=== PATIENT | male | born 1965 | race Caucasian/White ===

== ENCOUNTER 2018-11-10 19:49 | Emergency (ER) | payer BC ==
[2018-11-10] MEDS: Lidocaine 2% 5 ML SDV INJECT ONE (20:00)
[2018-11-10] MEDS: Bacitracin Oint 1 GM U/D Packet TOP ONE (20:04)
[2018-11-10] MEDS: Diphtheria,Pertussis(Acell),Tetanus Vaccine 0.5 ML SDV inactive IM ONE (20:13)
--- NOTE | 2018-11-10 20:15 | EDM.PDOC ---
ED HPI GENERAL MEDICAL PROBLEM - General Chief Complaint: Upper Extremity Injury/Pain Stated Complaint: FISH HOOK Time Seen by Provider: 11/10/18 19:55 Source of Information: Reports: Patient History Limitations: Reports: No Limitations - History of Present Illness INITIAL COMMENTS - FREE TEXT/NARRATIVE: According to patient he was fishing and the fish hook accidentally got stuck into his right middle finger. C/o pain in his finger. No tingling or numbness. 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 No other complaints. Onset: Today Onset Date: 11/10/18 Onset Time: 18:00 Location: Reports: Upper Extremity, Right Quality: Reports: Ache Severity: Mild Improves with: Reports: None Worsens with: Reports: None Associated Symptoms: Denies: Confusion, Chest Pain, Cough, Diaphoresis, Fever/ Chills, Headaches, Nausea/Vomiting, Rash, Seizure, Shortness of Breath, Syncope , Weakness - Related Data Allergies Allergy/AdvReac Type Severity Reaction Status Date / Time tramadol Allergy Nausea and Verified 11/10/18 20:06 Vomiting Review of Systems - Review of Systems Review Of Systems: See Below Constitutional: Denies: Chills, Fever Eyes: Denies: Blurred Vision Ears: Denies: Pain Nose: Denies: Congestion, Epistaxis Mouth/Throat: Denies: Pain, Painful Swallowing Respiratory: Denies: Cough, Sputum Cardiovascular: Denies: Chest Pain, Syncope GI/Abdominal: Denies: Abdominal Pain, Diarrhea, Nausea, Vomiting Genitourinary: Denies: Dysuria Musculoskeletal: Denies: Joint Pain, Joint Swelling, Muscle Pain Skin: Reports: Wound. Denies: Bruising, Pruritis, Rash ED EXAM, GENERAL - Physical Exam Exam: See Below Exam Limited By: No Limitations General Appearance: Alert, WD/WN, No Apparent Distress Eye Exam: Bilateral Eye: EOMI, PERRL Ears: Normal External Exam, Normal Canal, Hearing Grossly Normal, Normal TMs Ear Exam: Bilateral Ear: Auricle Normal, Canal Normal, TM normal Nose: Normal Inspection, Normal Mucosa, No Blood Throat/Mouth: Normal Inspection, Normal Lips, Normal Teeth, Normal Gums, Normal Oropharynx, Normal Voice, No Airway Compromise Head: Atraumatic, Normocephalic Neck: Normal Inspection, Supple, Non-Tender, Full Range of Motion Respiratory/Chest: No Respiratory Distress, Lungs Clear, Normal Breath Sounds, No Accessory Muscle Use, Chest Non-Tender Cardiovascular: Normal Peripheral Pulses, Regular Rate, Rhythm, No Edema, No Gallop, No JVD, No Murmur, No Rub Extremities: Normal Inspection, Normal Range of Motion, Non-Tender, Normal Capillary Refill, No Pedal Edema Neurological: Alert, Oriented Skin Exam: Warm, Other (There is a large fish hook , embedded over the radail aspect of the proximal phalynx of the middle finger. tender with movement.) Course - Vital Signs Text/Narrative:: Pt reassured, there is fish hook embedded in the right middle finger. The area around the wound was infiltrated with about 0.5 cc of 2% lidocaine. The hook was extracted under aseptic precautions with the needle technique. Pt tolerated the procedure well. Bleeding controlled with pressure. Simpel antibiotic ointment and bandaid applied. Pt advised to keep the area clean and dry. He did receive his Tetanus today. return to emergency room or clinic if there is redness, swelling or discharge from the wound. Other hutton followup with his primary care provider as needed. - Orders/Labs/Meds Orders: Active Orders 24 hr Category Date Time Status Vaccines to be Administered [RC] PER UNIT ROUTINE Care 11/10/18 20:07 Active Meds: Medications Discontinued Medications Generic Name Dose Route Start Last Admin Trade Name Lisa PRN Reason Stop Dose Admin Bacitracin 1 dose 11/10/18 20:00 Bacitracin Oint 1 Gm TOP 11/10/18 20:01 ONETIME ONE Diphtheria/Tetanus/Acell Pertussis 0.5 ml 11/10/18 20:07 Boostrix IM 11/10/18 20:08 .ONCE ONE Departure - Departure Time of Disposition: 20:30 Disposition: Home, Self-Care 01 Condition: Fair Clinical Impression: Fish hook injury of finger of right hand - Discharge Information *PRESCRIPTION DRUG MONITORING PROGRAM REVIEWED*: Not Applicable *COPY OF PRESCRIPTION DRUG MONITORING REPORT IN PATIENT TAHIR: Not Applicable Additional Instructions: Pt reassured, there is fish hook embedded in the right middle finger. The area around the wound was infiltrated with about 0.5 cc of 2% lidocaine. The hook was extracted under aseptic precautions with the needle technique. Pt tolerated the procedure well. Bleeding controlled with pressure. Simpel antibiotic ointment and bandaid applied. Pt advised to keep the area clean and dry. He did receive his Tetanus today. return to emergency room or clinic if there is redness, swelling or discharge from the wound. Other hutton followup with his primary care provider as needed. - Problem List & Annotations (1) Fish hook injury of finger of right hand SNOMED Code(s): 04540857 Code(s): S69.91XA - UNSP INJURY OF RIGHT WRIST, HAND AND FINGER(S), INIT ENCNTR Status: Acute - Problem List Review Problem List Initiated/Reviewed/Updated: Yes - My Orders Last 24 Hours: My Active Orders 11/10/18 20:07 Vaccines to be Administered [RC] PER UNIT ROUTINE - Assessment/Plan Last 24 Hours: My Active Orders 11/10/18 20:07 Vaccines to be Administered [RC] PER UNIT ROUTINE Assessment:: right middle finger fishhook. Plan: Pt reassured, there is fish hook embedded in the right middle finger. The area around the wound was infiltrated with about 0.5 cc of 2% lidocaine. The hook was extracted under aseptic precautions with the needle technique. Pt tolerated the procedure well. Bleeding controlled with pressure. Simpel antibiotic ointment and bandaid applied. Pt advised to keep the area clean and dry. He did receive his Tetanus today. return to emergency room or clinic if there is redness, swelling or discharge from the wound. Other hutton followup with his primary care provider as needed.
== END 2018-11-10 20:23 | disposition home or self-care (01) ==
LOC: LB.ED 19:49
DX: S60.452A Superficial foreign body of right middle finger, initial encounter (principal); Z23 Encounter for immunization; Z88.8 Allergy status to other drugs, medicaments and biological substances; X58.XXXA Exposure to other specified factors, initial encounter
CPT/HCPCS: 90471; 90715; 99282; J2001